=== PATIENT | male | born 2000 | race Hispanic/Latino ===

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

== ENCOUNTER 2024-03-17 15:58 | Emergency (ER) | payer MEDICAID ==
[~2024-03-17] VITALS: Ht 152.4 cm; Wt 61.2 kg
--- NOTE | 2024-03-17 16:39 | ERN ---
ED Note History of Present Illness Stated Complaint: MOSELEY,SYNCOPE Time Seen by MD: 16:12 Dictation: 23-year-old male presents to the ED for evaluation of near-syncope onset level. Patient reports vomiting, headache, but denies any chest pain, shortness a breath, abdominal pain or any other associated symptoms at this time. Patient reports he has been sick since Friday 4 days ago and was seen by PCP and prescribed cough and allergy medication. Allergies: Coded Allergies: No Known Drug Allergies (Unverified Allergy, Unknown, 01/15/21) Home Meds Active Scripts Oseltamivir Phosphate (Tamiflu) 75 Mg Cap, 1 CAP PO BID for 5 Days, #10 CAP 0 Refills Prov:AFIA HUIZAR MD 03/17/24 Ondansetron (Ondansetron Odt) 4 Mg Tab.rapdis, 4 MG PO BID for vomiting for 5 Days, #10 TAB Prov:AFIA HUIZAR MD 03/17/24 Past Medical History Past Medical History: Other Additional Past Medical Hx: ALLERGIES Review of System Dictation Constitutional: Negative for fever,chills, and weight loss Eyes: Negative for injury, pain,redness, and discharge ENT: Negative for injury,pain or swelling Cardiovascular: Negative for chest pain, palpitations, and edema Respiratory: Negative for shortness of breath, cough, and wheezing, Abdomen/GI: Positive for vomiting,Negative for abdominal pain, nausea, diarrhea, and constipation Back: Negative for injury and pain : Negative for injury, bleeding and discharge MS/Extremity: Negative for injury and deformity Skin: Negative for rash, and discoloration Neuro: Positive for syncope, headache negative for weakness, numbness, tingling, and seizure Psych: Negative for suicide ideation, homicidal ideation, and hallucinations Initial Vital Sign VS Vital Signs Date Time Temp Pulse Resp B/P (MAP) Pulse Ox O2 Delivery O2 Flow Rate FiO2 03/17/24 16:41 98.2 114 18 136/95 98 03/17/24 18:39 Room Air* 0 21 Physical Exam Dictation General: awake, alert, NAD Head/Face: Normocephalic, atraumatic Eyes: PERRL, EOMI, vision at baseline ENT: oral cavity clear, TMs clear, no signs of infection Neck: Trachea midline, supple, no nuchal rigidity Cardiovascular: RRR, normal S1/S2, No MRGs, no JVD Respiratory: CTAB, no respiratory distress, No rales or wheezes Abdomen: Soft, non-tender, non-distended, normal bowel sounds, no guarding or rebound. Skin: Warm, dry, normal turgor, no rash MS/Extremity: Pulses equal, no cyanosis, neurovascular intact, FROM Neuro: COAx4, GCS 15, strength 5/5, CN 2-12 intact, normal cerebellar exam, normal gait, Psych: Normal behavior, mood, and affect normal Results (Laboratory/Radiology) Laboratory/Radiology Laboratory Tests Test 03/17/24 16:45 03/17/24 16:50 White Blood Count 7.1 K/uL (4.8-10.8) Red Blood Count 5.73 MIL/uL (4.50-6.20) Hemoglobin 17.4 g/dL (14.0-18.0) Hematocrit 50.6 % (42-54) Mean Corpuscular Volume 88.3 fL (80-100) Mean Corpuscular Hemoglobin 30.4 pg (27.0-33.0) Mean Corpuscular Hemoglobin Concent 34.4 g/dL (32.0-36.0) Red Cell Distribution Width 11.4 % (11.0-15.5) Platelet Count 192 K/uL (130-400) Mean Platelet Volume 9.9 fL (7.5-10.5) Immature Granulocyte % (Auto) 0.3 % (0-1) Neutrophils (%) (Auto) 67.9 % (40.0-77.0) Lymphocytes (%) (Auto) 22.3 % (21.0-51.0) Monocytes (%) (Auto) 8.3 % (3.0-13.0) Eosinophils (%) (Auto) 0.6 % (0.0-8.0) Basophils (%) (Auto) 0.6 % (0.0-5.0) Neutrophils # (Auto) 4.9 K/uL (1.8-7.7) Lymphocytes # (Auto) 1.6 K/uL (1.0-4.8) Monocytes # (Auto) 0.6 K/uL (0.1-1.0) Eosinophils # (Auto) 0.04 K/uL (0.00-0.70) Basophils # (Auto) 0.04 K/uL (0.00-0.20) Absolute Immature Granulocyte (auto 0.02 K/uL (0-1) Nucleated Red Blood Cells 0.0 % (0.0-0.19) Sodium Level 137 mmol/L (136-145) Potassium Level 3.2 mmol/L (3.5-5.1) L Chloride Level 99 mmol/L (101-111) L Carbon Dioxide Level 31 mmol/L (21-32) Blood Urea Nitrogen 13 mg/dL (7-18) Creatinine 1.2 mg/dL (0.5-1.3) Glomerular Filtration Rate Calc 88 mL/min (>90) Random Glucose 152 mg/dL (70-105) H Total Calcium 8.7 mg/dL (8.5-10.1) Total Creatine Kinase 686 U/L (21-232) #*H Influenza Type A Antigen Positive For Type A Influenza Type B Antigen Negative For Type B SARS-CoV-2 Antigen (Rapid) PRESUMPTIVE NEGATIVE Labs Reviewed?: Yes ED Course ED Course Orders Procedure Category Date Status Time Influenza Type A & B, LAB 03/17/24 Complete Rapid 16:32 Basic Metabolic Panel LAB 03/17/24 Complete 16:32 Creatine Kinase, Total LAB 03/17/24 Complete 16:32 Cbc With Differential LAB 03/17/24 Complete 16:32 Covid19 (Sars Antigen LAB 03/17/24 Complete Rapid) 16:32 12 Lead Ekg Tracing- EKG 03/17/24 Complete Technical 16:33 Vital Signs Date Time Temp Pulse Resp B/P (MAP) Pulse Ox O2 Delivery O2 Flow Rate FiO2 03/17/24 18:39 98.2 106 18 119/76 97 Room Air* 0 21 03/17/24 16:41 98.2 114 18 136/95 98 Medical Decision Making MDM MDM: Differential diagnosis: Viral syndrome, influenza Previous outside records reviewed: Old ER visits. Need for hospitalization: Patient does not meet criteria for hospitalization. Need for emergency major/minor surgery: No Patient's prior external medical records from other ER visits were reviewed by me as indicated. Prior testing and results from previous visits were reviewed. Prior tests were taken into account with medical decision making and resource utilization, independent historian/historians were used to obtain complete medical history. I independently interpreted the test that were performed, results were reviewed by me and considered findings on radiology if ordered. Medical management and examination interpretation discussions were had by me with other qualified healthcare professionals as indicated for the patient's care. DX & DISP Disposition: Discharge Departure Impression: Primary Impression: Influenza A Additional Impression: Acute dehydration Condition: Stable Scripts Oseltamivir Phosphate (Tamiflu) 75 Mg Cap 1 CAP PO BID for 5 Days, #10 CAP 0 Refills Prov: AFIA HUIZAR MD 03/17/24 Ondansetron (Ondansetron Odt) 4 Mg Tab.rapdis 4 MG PO BID for vomiting for 5 Days, #10 TAB Prov: AFIA HUIZAR MD 03/17/24 Referrals: SELF,REFERRAL (PCP) I have reviewed, & agreed with my scribe's, documentation. (Entered by Triny Felix, acting as a scribe for Dr. Huizar) I personally scribed for AFIA HUIZAR MD ([email or web address]) on 03/17/24 at 16:39. Electronically submitted by Triny Felix ([email or web address]). AFIA HUIZAR MD Mar 17, 2024 16:39
--- NOTE | 2024-03-17 16:41 | EKG ---
[facility] Test Date: 2024-03-17 Test Time: 16:39:47 Pat Name: MARIANELA STEPHENSON Department: ED Room: Gender: M Manager Style: [id number] : 2000 Requested By: AFIA HUIZAR Order Number: [id number] Reading MD: Terrance Shannon Measurements Intervals [place] Rate: 125 P: 53 NV: 133 QRS: 31 QRSD: 90 T: 40 QT: 314 QTc: 453 Interpretive Statements Sinus tachycardia Compared to ECG 01/15/2021 14:53:07 Sinus rhythm no longer present ST (T wave) deviation no longer present Electronically Signed On 03-17-2024 19:19:13 [employer] by Terrance Shannon Please click the below link to view image of tracing.
[2024-03-17 17:02] LABS: BASOPHILS # (AUTO) 0.04 K/uL (0.00-0.20); BASOPHILS % (AUTO) 0.6 % (0.0-5.0); EOSINOPHILS # (AUTO) 0.04 K/uL (0.00-0.70); EOSINOPHILS % (AUTO) 0.6 % (0.0-8.0); HEMATOCRIT 50.6 % (42-54); IMMATURE GRANULOCYTE ABSOLUTE 0.02 K/uL (0-1); LYMPHOCYTES # (AUTO) 1.6 K/uL (1.0-4.8); LYMPHOCYTES % (AUTO) 22.3 % (21.0-51.0); MEAN CORPUSCULAR HEMOGLOBIN 30.4 pg (27.0-33.0); MEAN CORPUSCULAR HGB CONC 34.4 g/dL (32.0-36.0); MEAN CORPUSCULAR VOLUME 88.3 fL (80-100); MONOCYTES # (AUTO) 0.6 K/uL (0.1-1.0); MONOCYTES % (AUTO) 8.3 % (3.0-13.0); NEUTROPHILS # (AUTO) 4.9 K/uL (1.8-7.7); NEUTROPHILS % (AUTO) 67.9 % (40.0-77.0); PLATELET COUNT (AUTO) 192 K/uL (130-400); RED BLOOD CELL COUNT(AUTO) 5.73 MIL/uL (4.50-6.20); RED CELL DISTRIBUTION WIDTH 11.4 % (11.0-15.5); WHITE BLOOD COUNT (AUTO) 7.1 K/uL (4.8-10.8)
[2024-03-17 17:07] LABS: CREATININE 1.2 mg/dL (0.5-1.3); POTASSIUM 3.2 mmol/L (3.5-5.1)
[2024-03-17 17:45] LABS: INFLUENZA TYPE B Negative For Type B (NEGATIVE)
[2024-03-17 18:11] LABS: COVID19 (SARS ANTIGEN RAPID) PRESUMPTIVE NEGATIVE (NEGATIVE)
[2024-03-17 18:34] LABS: INFLUENZA TYPE A Positive For Type A (NEGATIVE)
[2024-03-17 18:39] VITALS: BP 119/76; PULSE 106; RESP 18; TEMP 98.2; O2SAT 97
[2024-03-17] MEDS ORDERED: OSEL75 PO (18:51)
[2024-03-17] MEDS ORDERED: ONDA-243 PO (18:51)
== END 2024-03-17 19:08 | disposition home or self-care (01) ==
LOC: EDH 15:58
DX: J10.1 Influenza due to other identified influenza virus with other respiratory manifestations (principal); E86.0 Dehydration; Z20.822 Contact with and (suspected) exposure to COVID-19; Z79.899 Other long term (current) drug therapy; Z98.890 Other specified postprocedural states
CPT/HCPCS: 36415; 80048; 82550; 85025; 87426; 87804; 93005; 99284